=== PATIENT | female | born 1945 | race Caucasian/White ===

== ENCOUNTER 2021-02-25 13:29 | Inpatient (IN) | payer MEDICARE, OTHER ==
[~2021-02-25] VITALS: Ht 157.5 cm; Wt 47.6 kg
[2021-02-25 14:44] LABS: RED BLOOD COUNT 2.44 M/UL (4.00-5.10); WHITE BLOOD COUNT 6.4 K/UL (4.5-11.0)
[2021-02-25 15:01] LABS: BUN/CREATININE RATIO 21 (0-10)
[2021-02-25] MEDS ORDERED: BENAZEPRIL HCL20 MG PO (16:51)
[2021-02-25] MEDS ORDERED: VITAMIN D250 MCG PO (16:52)
[2021-02-25] MEDS ORDERED: JANTOVEN5 MG PO (16:52)
[2021-02-25] MEDS ORDERED: FLUOXETINE HCL40 MG PO (16:52)
[2021-02-25] MEDS ORDERED: VITAMIN E100 UNI2 PO (16:52)
[2021-02-25] MEDS ORDERED: ZINC50 M1 PO (16:53)
[2021-02-25 23:35] LABS: HEMOGLOBIN 7.3 gm/dl (12.3-15.3)
[2021-02-26 13:07] LABS: HEMOGLOBIN 8.1 gm/dl (12.3-15.3); RED BLOOD COUNT 3.39 M/UL (4.00-5.10); WHITE BLOOD COUNT 7.2 K/UL (4.5-11.0)
[2021-02-26 14:02] LABS: BUN/CREATININE RATIO 13 (0-10)
[2021-02-26 16:04] LABS: HEMOGLOBIN 8.7 gm/dl (12.3-15.3)
[2021-02-26 23:36] LABS: HEMOGLOBIN 8.4 gm/dl (12.3-15.3)
[2021-02-27 03:50] LABS: HEMOGLOBIN 8.4 gm/dl (12.3-15.3); RED BLOOD COUNT 3.55 M/UL (4.00-5.10); WHITE BLOOD COUNT 6.6 K/UL (4.5-11.0)
[2021-02-27 04:07] LABS: BUN/CREATININE RATIO 10 (0-10)
[2021-02-28 03:42] LABS: HEMOGLOBIN 8.8 gm/dl (12.3-15.3); RED BLOOD COUNT 3.71 M/UL (4.00-5.10); WHITE BLOOD COUNT 6.9 K/UL (4.5-11.0)
[2021-02-28 04:11] LABS: BUN/CREATININE RATIO 10 (0-10)
[2021-02-28] MEDS ORDERED: FERROUS SULFAT325 M2 PO (08:37)
[2021-02-28] MEDS ORDERED: PROTONIX40 MG PO (08:37)
[2021-02-28] MEDS ORDERED: ELIQUIS5 MG PO (08:37)
== END 2021-02-28 14:57 | disposition home or self-care (01) | DRG 378 ==
LOC: ER1 13:29 → PROG CARE 16:12 → CDU 16:12 → PROG CARE 20:48
PROVIDERS: Physician Assistant; Physician Assistant Medical; ADMIT Internal Medicine
PROC: 30233N1 Transfusion of Nonautologous Red Blood Cells into Peripheral Vein, Percutaneous Approach (ICD-10-PCS; principal; 2021-02-25)
PROC: 0DJ08ZZ Inspection of Upper Intestinal Tract, Via Natural or Artificial Opening Endoscopic (ICD-10-PCS; 2021-02-26)
PROC: 0DJD8ZZ Inspection of Lower Intestinal Tract, Via Natural or Artificial Opening Endoscopic (ICD-10-PCS; 2021-02-27)
DX: K29.01 Acute gastritis with bleeding (principal); Z20.822 Contact with and (suspected) exposure to COVID-19; D62 Acute posthemorrhagic anemia; E44.1 Mild protein-calorie malnutrition; Z68.1 Body mass index [BMI] 19.9 or less, adult; K57.31 Diverticulosis of large intestine without perforation or abscess with bleeding; K64.1 Second degree hemorrhoids; K64.8 Other hemorrhoids; K44.9 Diaphragmatic hernia without obstruction or gangrene; E87.6 Hypokalemia; F17.210 Nicotine dependence, cigarettes, uncomplicated; E11.9 Type 2 diabetes mellitus without complications; F41.9 Anxiety disorder, unspecified; D50.9 Iron deficiency anemia, unspecified; I10 Essential (primary) hypertension; Z79.01 Long term (current) use of anticoagulants; Z86.711 Personal history of pulmonary embolism; Z86.718 Personal history of other venous thrombosis and embolism; Z82.49 Family history of ischemic heart disease and other diseases of the circulatory system; Z83.3 Family history of diabetes mellitus; Z88.0 Allergy status to penicillin; Z87.59 Personal history of other complications of pregnancy, childbirth and the puerperium
CPT/HCPCS: 36415; 36430; 80048; 80053; 81001; 82272; 82550; 82553; 83540; 83550; 83735; 83874; 83880; 84100; 84132; 84484; 85014; 85018; 85025; 85027; 85610; 85730; 86850; 86900; 86901; 86920; 93005; 99285; C9113; J0360; J2001; J2704; J3430; J7040; P9016; U0002